=== PATIENT | female | born 1990 | race Caucasian/White ===

== ENCOUNTER 2017-09-06 22:26 | Emergency (ER) | payer OTHER ==
[2017-09-06 22:40] VITALS: BP 112/73; PULSE 83; TEMP 99; BMI 26.9
[2017-09-06 23:10] LABS: URINE APPEARANCE CLOUDY; URINE BILIRUBIN NEGATIVE (NEGATIVE); URINE BLOOD 2+ (NEGATIVE); URINE COLOR LTYELLOW; URINE GLUCOSE (UA) NEGATIVE (NEGATIVE); URINE KETONE NEGATIVE (NEGATIVE); URINE NITRITE NEGATIVE (NEGATIVE); URINE PROTEIN NEGATIVE (NEGATIVE); URINE UROBILINOGEN NEGATIVE mg/dL (0.2-1.0)
[2017-09-06 23:11] LABS: URINE LEUK ESTERASE 3+ (NEGATIVE)
[2017-09-06 23:14] LABS: CALCIUM OXALATE CRYSTALS RARE /hpf (NONE SEEN); EPI CELLS MODERATE /HPF (FEW); URINE BACTERIA MODERATE /hpf (NONE SEEN); URINE MUCUS RARE; YEAST FEW
== END 2017-09-07 01:00 | disposition left against medical advice (07) ==
LOC: JER 22:26
DX: Z53.21 Procedure and treatment not carried out due to patient leaving prior to being seen by health care provider (principal)
CPT/HCPCS: 81003; 81015; 84703; 87086; 99281-25

== ENCOUNTER 2018-11-10 15:50 | Emergency (ER) | payer OTHER ==
--- NOTE | 2018-11-10 16:09 | PDOC ---
Rapid Medical Evaluation Chief Complaint: Chest Pain Time Seen by Provider: 11/10/18 16:07 Medical Evaluation: Allergies Allergy/AdvReac Type Severity Reaction Status Date / Time avocado [Avocado] Allergy Hives Verified 09/06/17 22:36 [place] Allergy Mild Hives Uncoded 09/06/17 22:36 11/10/18 16:07 I performed a brief in-person evaluation of this patient. Chief complaint: Chest pain, dizziness, patient believes r/t anxiety. Several recent visits for same. Pertinent physical exam findings: RRR, S1/S2, clear lungs. I have ordered the following: EKG, pgu. Patient to proceed to the ED for further evaluation. Discharge Disposition - Diagnosis Chest pain - Referrals - Patient Instructions - Post Discharge Activity
[2018-11-10 16:10] VITALS: BP 130/76; PULSE 94; TEMP 99.8; BMI 28.8
--- NOTE | 2018-11-10 18:11 | PDOC ---
History of Present Illness - General Chief Complaint: Psychiatric Stated Complaint: CHEST PAIN Time Seen by Provider: 11/10/18 16:07 History Source: Patient - History of Present Illness Initial Comments: 11/10/18 18:38 28-year-old female complaining of palpitations, chest discomfort on and off for 5 times today. Patient reports that symptoms started one month ago while she was driving. Patient was seen and [facility] and was treated for anxiety. Since then patient had 2 more visits to [facility] ER and with PCP. Patient was given 4 day dose of Ativan per patient which gave minimal symptoms improvement . 11/10/18 20:49 Past History - Past Medical History Allergies/Adverse Reactions: Allergies Allergy/AdvReac Type Severity Reaction Status Date / Time avocado [Avocado] Allergy Hives Verified 09/06/17 22:36 [place] Allergy Mild Hives Uncoded 09/06/17 22:36 Home Medications: Ambulatory Orders Amoxicillin - [Amoxicillin 500mg Capsule -] 500 mg PO BID #14 capsule 06/23/14 Dextromethorphan Polistirex [Delsym] 30 mg PO BID PRN #1 bottle 06/23/14 Loratadine/Pseudoephedrine Sul [Claritin-D 24 Hour Tablet] 1 tab PO DAILY #7 tab.sr.24h 06/23/14 Asthma: Yes Cancer: No Cardiac Disorders: No COPD: No Diabetes: No HTN: No Psychiatric Problems: Yes (ANXIETY) Seizures: No Thyroid Disease: No - Suicide/Smoking/Psychosocial Hx Smoking History: Never smoked Have you smoked in the past 12 months: No Hx Alcohol Use: No Drug/Substance Use Hx: No Substance Use Type: None Hx Substance Use Treatment: No Review of Systems - Review of Systems Able to Perform ROS?: Yes Is the patient limited Burmese proficient: No Constitutional: No: Symptoms Reported, See HPI, Chills, Diaphoresis, Fever, Loss of Appetite, Malaise, Night Sweats, Weakness, Weight Stable, Unintentional Wgt. Loss, Unexplained wgt Loss, Other Respiratory: Yes: Symptoms reported, See HPI, Cough, Orthopnea, Shortness of Breath, SOB with Exertion, SOB at Rest, Stridor, Wheezing, Productive cough, Hemoptysis, Other Cardiac (ROS): Yes: Chest Pain, Lightheadedness Neurological: No: Symptoms reported, See HPI, Headache, Numbness, Paresthesia, Pre-Existing Deficit, Seizure, Tingling, Tremors, Weakness, Unsteady Gait, Ataxia, Dizziness, Other *Physical Exam - Vital Signs Last Vital Signs Temp Pulse Resp BP Pulse Ox 99.8 F H 94 H 16 130/76 100 11/10/18 16:07 11/10/18 16:07 11/10/18 16:07 11/10/18 16:07 11/10/18 16:07 - Physical Exam General Appearance: Yes: Appropriately Dressed HEENT: positive: Normal ENT Inspection Respiratory/Chest: positive: Lungs Clear, Normal Breath Sounds. negative: Chest Tender Cardiovascular: positive: Regular Rate, Tachycardia Gastrointestinal/Abdominal: positive: Normal Bowel Sounds, Soft. negative: Tender Musculoskeletal: positive: Normal Inspection Extremity: positive: Normal Capillary Refill, Normal Inspection, Normal Range of Motion Integumentary: positive: Normal Color, Dry, Warm Neurologic: positive: Fully Oriented, Alert Moderate Sedation - Procedure Monitoring Vital Signs: Procedure Monitoring Vital Signs Temperature 99.8 F H 11/10/18 16:07 Pulse Rate 94 H 11/10/18 16:07 Respiratory Rate 16 11/10/18 16:07 Blood Pressure 130/76 11/10/18 16:07 O2 Sat by Pulse Oximetry (%) 100 11/10/18 16:07 Heart Score/ECG Review - History History: Slightly suspicious - Electrocardiogram EKG: Normal - Age Age: </= 45 - Risk Factors Based on the list above the patient has:: No risk factors known - Troponin Troponin: </= normal limit - Score Heart Score - Total: 0 - ECG Intrepretation Rhythm: Regular Rhythm Comment:: 11/10/18 20:50 NSR: 89 bpm possible left atrial enlargement ED Treatment Course - LABORATORY CBC & Chemistry Diagram: 11/10/18 18:32 11/10/18 18:32 Medical Decision Making - Medical Decision Making 11/10/18 18:40 A: chest pain; anxiety? P: EKG labs TSH D-Dimer pcp/ cardiology follow up. *DC/Admit/Observation/Transfer Diagnosis at time of Disposition: Chest pain Qualifiers: Chest pain type: unspecified Qualified Code(s): R07.9 - Chest pain, unspecified - Discharge Dispostion Disposition: HOME Condition at time of disposition: Stable - Referrals Referrals: J Luis Broussard MD [Staff Physician] - Call tomorrow - Patient Instructions Printed Discharge Instructions: DI for Atypical Chest Pain Additional Instructions: please follow up with a sizing sprayer as soon as possible. your work up in the ER was wnl . thyroid levels are pending. we will call you if its abnormal Additional Instructions: * Please call your personal physician to report your Emergency Department visit and to report your progress, if any. * If there is no improvement in symptoms in 2 days call your physician. * Return to the Emergency Department for any worsening symptoms. - Post Discharge Activity Forms/Work/School Notes: Back to Work
[2018-11-10] MEDS ORDERED: ASPIRIN 81 MG CHEWABLE TABLETS PO ONE (18:12)
[2018-11-10 19:06] LABS: BASO % 0.2 % (0-2.0); EOS % 0.1 % (0-4.5); HEMATOCRIT 39.3 % (32.4-45.2); HEMOGLOBIN 13.3 GM/dL (10.7-15.3); LYMPH % 11.1 % (8-40); MCH 29.1 pg (25.7-33.7); MCHC 33.7 g/dl (32.0-36.0); MEAN CELL VOLUME 86.2 fl (80-96); MEAN PLT VOLUME 8.3 fl (7.5-11.1); MONO % 5.5 % (3.8-10.2); NEUT % 83.1 % (42.8-82.8); PLATELET COUNT 220 K/MM3 (134-434); RBC 4.57 M/mm3 (3.60-5.2); RDW 13.9 % (11.6-15.6); WHITE BLOOD COUNT 7.7 K/mm3 (4.0-10.0)
[2018-11-10 19:16] LABS: INR 1.06 (0.83-1.09); PROTHROMBIN TIME (PATIENT) 12.5 SEC (9.7-13.0)
[2018-11-10 19:46] LABS: URINE APPEARANCE CLEAR; URINE BILIRUBIN NEGATIVE (<2.0 mg/dL); URINE COLOR YELLOW; URINE GLUCOSE (UA) NEGATIVE (NEGATIVE); URINE KETONE TRACE (NEGATIVE); URINE LEUK ESTERASE NEGATIVE (NEGATIVE); URINE NITRITE NEGATIVE (NEGATIVE); URINE PROTEIN NEGATIVE (NEGATIVE); URINE UROBILINOGEN NEGATIVE mg/dL (0.2-1.0)
[2018-11-10 19:57] LABS: EPI CELLS RARE /HPF (FEW); URINE BACTERIA RARE /hpf (NONE SEEN); URINE MUCUS RARE
[2018-11-10 20:29] LABS: ALBUMIN 4.2 g/dl (3.4-5.0); CO2 23 mmol/L (21-32); CREATININE 0.5 mg/dL (0.55-1.3)
[2018-11-10 21:19] LABS: ALK PHOS 82 U/L (45-117); ANION GAP 10 MMOL/L (8-16); BILIRUBIN,TOTAL 0.2 mg/dL (0.2-1); BLOOD UREA NITROGEN 9 mg/dL (7-18); CALCIUM 8.6 mg/dL (8.5-10.1); CHLORIDE 106 mmol/L (98-107); GLUCOSE,RANDOM 90 mg/dL (74-106); POTASSIUM 3.7 mmol/L (3.5-5.1); SGOT/AST 11 U/L (15-37); SGPT/ALT 21 U/L (13-61); SODIUM 139 mmol/L (136-145); TOT PROT 8.1 g/dl (6.4-8.2)
--- NOTE | 2018-11-11 13:15 | EKG ---
Test Reason : Blood Pressure : / mmHG Vent. Rate : 089 BPM Atrial Rate : 089 BPM P-R Int : 136 ms QRS Dur : 076 ms QT Int : 350 ms P-R-T Axes : 064 013 004 degrees QTc Int : 425 ms NORMAL SINUS RHYTHM POSSIBLE LEFT ATRIAL ENLARGEMENT SEPTAL INFARCT , AGE UNDETERMINED ABNORMAL ECG NO PREVIOUS ECGS AVAILABLE Confirmed by MD JACK, VIDA ([id number]) on 11/11/2018 1:15:35 PM Referred By: Confirmed By:VIDA SANTIAGO MD
== END 2018-11-10 21:51 | disposition home or self-care (01) ==
LOC: JERFT 15:50
DX: R07.9 Chest pain, unspecified (principal); F41.9 Anxiety disorder, unspecified
CPT/HCPCS: 36415; 71046-TC-FY; 80053; 81003; 81015; 82550; 83735; 84443; 84484; 84703; 85025; 85379; 85610; 93005; 93010; 99281-25

== ENCOUNTER 2021-03-23 03:25 | Inpatient (IN) | payer OTHER ==
[2021-03-23] MEDS: DEXTROSE 5%-LACTATED RINGERS 1,000 ML IV SCH ×2 (03:45→20:25)
[2021-03-23] MEDS ORDERED: MAGNESIUM SULFATE 20GM/500ML - 20 GM/500 ML INFUS.BAG ONE ×2 (04:25→16:32)
[2021-03-23] MEDS ORDERED: AMPICILLIN - 2 GM in SODIUM CHLORIDE 100 ML IVPB ONE (04:28)
[2021-03-23] MEDS ORDERED: BETAMET ACET/BETAMET NA PH 30 MG/5 ML VIAL IM ONE (04:30)
[2021-03-23] MEDS ORDERED: MAGNESIUM 4GM/H20 - 4 GM/100 ML IVPB IVPB SCH (04:30)
[2021-03-23 04:50] LABS: EPI CELLS 12 /uL (0-25.1); HYALINE CASTS 1 /uL (0-3.1); PH,URINE 6.5 (5.0-8.0); URINE APPEARANCE CLEAR; URINE BACTERIA 711 /uL (0-1359); URINE BILIRUBIN NEGATIVE (NEGATIVE); URINE COLOR YELLOW; URINE GLUCOSE (UA) NEGATIVE (NEGATIVE); URINE KETONE 1+ (NEGATIVE); URINE LEUK ESTERASE TRACE (NEGATIVE); URINE NITRITE NEGATIVE (NEGATIVE); URINE PROTEIN NEGATIVE (NEGATIVE); URINE RBC 3 /uL (0-23.9); URINE WBC 25 /uL (0-25.8)
[2021-03-23] MEDS: MAGNESIUM SULFATE 20GM/500ML - 20 GM/500 ML INFUS.BAG IV SCH ×2 (05:00→16:55)
[2021-03-23 05:01] LABS: BASO % 0.3 % (0-2.0); EOS % 1.1 % (0-4.5); HEMATOCRIT 29.8 % (32.4-45.2); HEMOGLOBIN 9.8 GM/dL (10.7-15.3); LYMPH % 16.8 % (8-40); MCHC 33.1 g/dl (32.0-36.0); MEAN CELL VOLUME 81.7 fl (80-96); MEAN PLT VOLUME 7.4 fl (7.5-11.1); MONO % 9.1 % (3.8-10.2); NEUT % 72.7 % (42.8-82.8); PLATELET COUNT 232 10^3/uL (134-434); RBC 3.64 M/mm3 (3.60-5.2); RDW 14.7 % (11.6-15.6); WHITE BLOOD COUNT 8.6 K/mm3 (4.0-10.0)
[2021-03-23 05:11] VITALS: BMI 32.4
[2021-03-23 05:11] LABS: INR 0.91 (0.83-1.09)
[2021-03-23] MEDS ORDERED: AMPICILLIN SODIUM 2 GM VIAL ONE (05:13)
[2021-03-23 05:14] LABS: ACTIVATED PTT 24.6 SECONDS (25.2-36.5)
[2021-03-23 06:21] LABS: CALCIUM 7.8 mg/dL (8.5-10.1)
[2021-03-23 06:22] LABS: ALBUMIN 2.7 g/dl (3.4-5.0); BLOOD UREA NITROGEN 5.6 mg/dL (7-18)
[2021-03-23 06:25] LABS: CREATININE 0.3 mg/dL (0.55-1.3)
[2021-03-23 06:26] LABS: BILIRUBIN,TOTAL 0.3 mg/dL (0.2-1)
[2021-03-23 07:19] LABS: TOT PROT 6.2 g/dl (6.4-8.2)
[2021-03-23] MEDS ORDERED: ACETAMINOPHEN 325 MG TABLET (FP) ONE (07:54)
[2021-03-23] MEDS ORDERED: AMPICILLIN SODIUM 1 GM VIAL ONE ×5 (08:09→21:04)
[2021-03-23 08:35] LABS: MAGNESIUM 3.3 mg/dL (1.8-2.4)
[2021-03-23] MEDS: AMPICILLIN - 1 GM in SODIUM CHLORIDE 100 ML IVPB SCH ×4 (09:00→21:05)
[2021-03-23] MEDS ORDERED: ACETAMINOPHEN 325 MG TABLET (FP) PO PRN (09:13)
[2021-03-23 11:56] LABS: HIV INTERPRETATION NEGATIVE (NEGATIVE)
[2021-03-24] MEDS: AMPICILLIN - 1 GM in SODIUM CHLORIDE 100 ML IVPB SCH ×3 (00:30→08:12)
[2021-03-24] MEDS ORDERED: MAGNESIUM SULFATE 20GM/500ML - 20 GM/500 ML INFUS.BAG ONE (02:47)
[2021-03-24] MEDS: MAGNESIUM SULFATE 20GM/500ML - 20 GM/500 ML INFUS.BAG IV SCH (02:50)
[2021-03-24] MEDS ORDERED: AMPICILLIN SODIUM 1 GM VIAL ONE ×2 (04:27→07:56)
[2021-03-24] MEDS ORDERED: BETAMET ACET/BETAMET NA PH 30 MG/5 ML VIAL IM ONE (05:15)
[2021-03-24] MEDS ORDERED: SODIUM CHLORIDE 100 ML IVPB ONE (07:56)
[2021-03-24 09:46] VITALS: TEMP 97.9
[2021-03-24 10:10] VITALS: BP 122/72; PULSE 90
== END 2021-03-24 10:11 | disposition home or self-care (01) | DRG 563 ==
LOC: JDEL 03:25 → JLDR 04:20
PROVIDERS: ADMIT Obstetrics & Gynecology; ATTEND Obstetrics & Gynecology
DX: O60.03 Preterm labor without delivery, third trimester (principal); Z3A.30 30 weeks gestation of pregnancy
CPT/HCPCS: 36415; 80053; 81003; 83735; 85025; 85610; 85730; 86762; 86780; 86850; 86900; 86901; 87086; 87186; 87340; 87389; 96372; C9803; U0003; U0005

== ENCOUNTER 2021-05-18 17:50 | Inpatient (IN) | payer OTHER ==
[2021-05-18 20:52] LABS: BASO % 0.3 % (0-2.0); EOS % 0.8 % (0-4.5); HEMATOCRIT 30.6 % (32.4-45.2); HEMOGLOBIN 10.1 GM/dL (10.7-15.3); LYMPH % 17.2 % (8-40); MCH 24.9 pg (25.7-33.7); MCHC 32.9 g/dl (32.0-36.0); MEAN CELL VOLUME 75.8 fl (80-96); MEAN PLT VOLUME 7.9 fl (7.5-11.1); MONO % 9.2 % (3.8-10.2); NEUT % 72.5 % (42.8-82.8); PLATELET COUNT 277 10^3/uL (134-434); RBC 4.04 M/mm3 (3.60-5.2); RDW 16.4 % (11.6-15.6); WHITE BLOOD COUNT 7.1 K/mm3 (4.0-10.0)
[2021-05-18 20:58] LABS: INR 0.88 (0.83-1.09); PROTHROMBIN TIME (PATIENT) 10.8 SEC (9.7-13.0)
[2021-05-18 21:01] LABS: ACTIVATED PTT 26.2 SECONDS (25.2-36.5)
[2021-05-18] MEDS ORDERED: BUTORPHANOL TARTRATE 1 MG/ML VIAL IVPB PRN ×2 (21:29)
[2021-05-18] MEDS ORDERED: PROMETHAZINE HCL 25 MG/1 ML VIAL IVPUSH ONE (21:29)
[2021-05-18] MEDS: ELECTROLYTE-148 SOLN 1,000 ML IV SCH (21:30)
[2021-05-18 21:36] LABS: CALCIUM 8.4 mg/dL (8.5-10.1)
[2021-05-18 21:37] LABS: BLOOD UREA NITROGEN 7.4 mg/dL (7-18)
[2021-05-18 21:40] LABS: CREATININE 0.4 mg/dL (0.55-1.3)
[2021-05-18 21:53] VITALS: BMI 30.9
[2021-05-18] MEDS ORDERED: AMPICILLIN - 2 GM in SODIUM CHLORIDE 100 ML IVPB ONE (22:00)
[2021-05-18] MEDS ORDERED: AMPICILLIN SODIUM 2 GM VIAL ONE (22:47)
[2021-05-19 01:32] LABS: HIV INTERPRETATION NEGATIVE (NEGATIVE)
[2021-05-19] MEDS: AMPICILLIN - 1 GM in SODIUM CHLORIDE 100 ML IVPB SCH ×6 (02:30→22:00)
[2021-05-19] MEDS ORDERED: AMPICILLIN SODIUM 1 GM VIAL ONE ×4 (05:48→21:54)
[2021-05-19] MEDS ORDERED: OXYTOCIN 30 UNITS in 0.9% NS 30 UNIT/500 ML INFUS.BAG IVPB SCH (09:30)
[2021-05-19] MEDS ORDERED: OXYTOCIN 30 UNITS in 0.9% NS 30 UNIT/500 ML INFUS.BAG IVPB ONE (09:48)
[2021-05-19 11:14] LABS: POC NITRAZINE NEG
[2021-05-19] MEDS ORDERED: PCA PUMP NR ONE ×2 (12:02→20:50)
[2021-05-19] MEDS ORDERED: FENTANYL/BUPIVACAINE/NS/PF - PCEA - 50 ML DISP.SYRIN EP ONE ×3 (12:03→20:50)
[2021-05-19] MEDS ORDERED: FENTANYL/BUPIVACAINE/NS/PF - PCEA - 50 ML DISP.SYRIN EP SCH (13:00)
[2021-05-19] MEDS ORDERED: NALOXONE HCL 0.4 MG/ML VIAL IVPUSH PRN (13:02)
[2021-05-19] MEDS ORDERED: BUPIVACAINE HCL/PF 0.25% (2.5MG/ML) 10 ML VIAL ONE (17:36)
[2021-05-19] MEDS: ELECTROLYTE-148 SOLN 1,000 ML IV SCH (21:30)
[2021-05-19] MEDS ORDERED: OXYTOCIN 20 UNITS in 0.9% NS 20 UNIT/1,000 ML INFUS.BAG IV ONE (21:54)
[2021-05-19] MEDS ORDERED: BENZOCAINE 20% 57 GM BOTTLE TP PRN (22:00)
[2021-05-19] MEDS ORDERED: IBUPROFEN 600 MG TABLET (FP) PO PRN (22:00)
[2021-05-19] MEDS ORDERED: BENZOCAINE 28 GM HEMORRHOIDAL OINTMENT TP PRN (22:00)
[2021-05-19] MEDS ORDERED: METHYLERGONOVINE MALEATE 0.2 MG/1 ML AMP IM PRN (22:00)
[2021-05-19] MEDS ORDERED: WITCH HAZEL 50% (TUCKS) 40 PAD/JAR PAD TP PRN (22:00)
[2021-05-19] MEDS ORDERED: BISACODYL 10 MG SUPP.RECT RC PRN (22:00)
[2021-05-19] MEDS ORDERED: OXYTOCIN 20 UNITS in 0.9% NS 20 UNIT/1,000 ML INFUS.BAG IV SCH (22:00)
[2021-05-20 00:12] LABS: CORD BASE EXCESS -11.4 mmol/L (0-2); CORD HCO3 14.2 mmHg (20-29); CORD PCO2 31.5 mmHg (30-78); CORD pH 7.272 (7.14-7.44)
[2021-05-20 00:13] LABS: CORD BASE EXCESS -11.4 mmol/L (0-2); CORD HCO3 16.7 mmHg (20-29); CORD pH 7.187 (7.14-7.44)
[2021-05-20] MEDS: ACETAMINOPHEN 325 MG TABLET (FP) PO PRN ×2 (05:56→16:23)
[2021-05-20 06:53] LABS: BASO % 0.2 % (0-2.0); EOS % 0.1 % (0-4.5); HEMATOCRIT 26.2 % (32.4-45.2); HEMOGLOBIN 8.5 GM/dL (10.7-15.3); LYMPH % 6.5 % (8-40); MCH 24.8 pg (25.7-33.7); MCHC 32.3 g/dl (32.0-36.0); MEAN CELL VOLUME 76.8 fl (80-96); MEAN PLT VOLUME 8.3 fl (7.5-11.1); MONO % 9.4 % (3.8-10.2); NEUT % 83.8 % (42.8-82.8); PLATELET COUNT 234 10^3/uL (134-434); RBC 3.41 M/mm3 (3.60-5.2); RDW 16.2 % (11.6-15.6)
[2021-05-20] MEDS: FERROUS SO4 325 MG TABLET (FP) PO SCH ×3 (09:00→17:37)
[2021-05-20] MEDS: PRENATAL VITAMINS W/ FOLIC ACID TABLET (FP) PO SCH (10:38)
[2021-05-20] MEDS ORDERED: SENNOSIDES/DOCUSATE COMBO (SENNA PLUS) TABLET (UD) PO PRN (22:00)
[2021-05-21] MEDS: FERROUS SO4 325 MG TABLET (FP) PO SCH (08:48)
[2021-05-21 09:44] VITALS: BP 108/73; PULSE 73; TEMP 97.6
[2021-05-21] MEDS: PRENATAL VITAMINS W/ FOLIC ACID TABLET (FP) PO SCH (10:00)
[2021-05-21] MEDS: ACETAMINOPHEN 325 MG TABLET (FP) PO PRN (10:48)
== END 2021-05-21 14:15 | disposition home or self-care (01) | DRG 560 ==
LOC: JDEL 17:50 → JLDR 17:51 → J3W 05-20 01:30
PROVIDERS: ADMIT Obstetrics & Gynecology; ATTEND Obstetrics & Gynecology
PROC: 10E0XZZ Delivery of Products of Conception, External Approach (ICD-10-PCS; principal; 2021-05-19)
DX: O42.02 Full-term premature rupture of membranes, onset of labor within 24 hours of rupture (principal); Z37.0 Single live birth; O70.0 First degree perineal laceration during delivery; O72.1 Other immediate postpartum hemorrhage; Z3A.39 39 weeks gestation of pregnancy
CPT/HCPCS: 36415; 36600; 59409; 80048; 82803; 83986-QW; 85025; 85610; 85730; 86780; 86850; 86900; 86901; 87389; C9803; U0003; U0005

== ENCOUNTER 2021-05-22 09:20 | Emergency (ER) | payer OTHER ==
[2021-05-22 09:26] VITALS: BP 108/62; PULSE 87; TEMP 98.1; BMI 31.1
[2021-05-22] MEDS ORDERED: diphenhydrAMINE HCL 50 MG CAPSULE PO ONE (09:40)
[2021-05-22] MEDS ORDERED: predniSONE 20 MG TABLET (UD) PO ONE (09:40)
[2021-05-22] MEDS ORDERED: diphenhydrAMINE HCL 25 MG CAPSULE (FP) PO ONE (09:43)
[2021-05-22] MEDS ORDERED: predniSONE 20 MG TABLET (UD) ONE (09:43)
[2021-05-22 10:26] LABS: EPI CELLS >36 /uL (0-25.1); HYALINE CASTS 6 /uL (0-3.1); URINE APPEARANCE CLOUDY; URINE BACTERIA 42 /uL (0-1359); URINE BILIRUBIN 1+ (NEGATIVE); URINE COLOR RED; URINE GLUCOSE (UA) NEGATIVE (NEGATIVE); URINE KETONE NEGATIVE (NEGATIVE); URINE LEUK ESTERASE 2+ (NEGATIVE); URINE NITRITE NEGATIVE (NEGATIVE); URINE PROTEIN 2+ (NEGATIVE); URINE UROBILINOGEN 0.2 mg/dL (0.2-1.0); URINE WBC 272 /uL (0-25.8)
[2021-05-22 11:12] LABS: URINE RBC 19291.7 /uL (0-23.9)
[2021-05-22 11:16] LABS: BASO % 0.3 % (0-2.0); EOS % 1.4 % (0-4.5); HEMATOCRIT 28.2 % (32.4-45.2); HEMOGLOBIN 9.2 GM/dL (10.7-15.3); LYMPH % 12.4 % (8-40); MCH 25.5 pg (25.7-33.7); MCHC 32.6 g/dl (32.0-36.0); MEAN PLT VOLUME 7.9 fl (7.5-11.1); MONO % 7.7 % (3.8-10.2); NEUT % 78.2 % (42.8-82.8); PLATELET COUNT 276 10^3/uL (134-434); RBC 3.61 M/mm3 (3.60-5.2); RDW 16.6 % (11.6-15.6); WHITE BLOOD COUNT 6.7 K/mm3 (4.0-10.0)
[2021-05-22 11:36] LABS: ALBUMIN 2.5 g/dl (3.4-5.0); BLOOD UREA NITROGEN 5.6 mg/dL (7-18); CALCIUM 8.3 mg/dL (8.5-10.1)
[2021-05-22 11:39] LABS: CREATININE 0.5 mg/dL (0.55-1.3)
[2021-05-22 11:41] LABS: BILIRUBIN,TOTAL 0.2 mg/dL (0.2-1); TOT PROT 6.1 g/dl (6.4-8.2)
== END 2021-05-22 12:01 | disposition home or self-care (01) ==
LOC: JER 09:20
DX: L50.0 Allergic urticaria (principal); R60.0 Localized edema
CPT/HCPCS: 36415; 80053; 81003; 85025; 99283-25